=== PATIENT | female | born 1960 | race African-American/Black ===

== ENCOUNTER 2018-11-08 14:05 | Inpatient (IN) | payer OTHER ==
[~2018-11-08] VITALS: Ht 170.2 cm; Wt 85.5 kg
[2018-11-08 14:12] VITALS: BP 165/88
[2018-11-08 15:19] LABS: ICTOTEST (BILI CONFIRMATORY) Positive (Negative); URINE BILIRUBIN 3+ (Negative); URINE BLOOD NEGATIVE (Negative); URINE CLARITY CLEAR; URINE COLOR YELLOW; URINE GLUCOSE-RANDOM* TRACE (Negative); URINE KETONES TRACE (Negative); URINE LEUKOCYTES-REFLEX TRACE (Negative); URINE NITRITE-REFLEX NEGATIVE (Negative); URINE PROTEIN (DIPSTICK) TRACE (Negative); URINE UROBILINOGEN >= 8.0 E.U./dl (0.2-1.0)
[2018-11-08] MEDS ORDERED: METFORMIN HCL500 MG PO (15:44)
[2018-11-08] MEDS ORDERED: NORVASC2.5 MG PO (15:44)
[2018-11-08] MEDS ORDERED: ALLOPURINOL 10100 M1 PO (15:44)
[2018-11-08] MEDS ORDERED: TOPROL XL25 MG PO (15:44)
[2018-11-08 15:47] LABS: ABSOLUTE NEUTROPHILS 5.3 thou/uL (1.4-8.2); BASOPHILS 0.5 % (0.0-2.0); EOSINOPHILS 1.1 % (0.0-3.0); HEMATOCRIT 39.7 % (37.0-47.0); HEMOGLOBIN 13.2 gm/dL (12.0-15.0); MCH 30.7 pg (26.0-34.0); MCHC 33.3 g/dL (28.0-37.0); MCV 92.3 fL (80.0-100.0); MONOCYTES 7.8 % (1.0-8.0); PLATELET COUNT 301 thou/uL (150-400); POLYS 72.6 % (36.0-66.0); RDW 15.1 % (10.5-14.5); WBC 7.3 thou/uL (4.0-11.0)
[2018-11-08 15:56] LABS: CALCIUM 9.9 mg/dL (8.5-10.1); CREATININE 0.8 mg/dL (0.6-1.0); POTASSIUM 3.3 mmol/L (3.5-5.1)
[2018-11-08 16:04] LABS: ALBUMIN 3.6 g/dL (3.4-5.0); TOTAL BILIRUBIN 2.2 mg/dL (<0.1-1.0); TOTAL PROTEIN 7.5 g/dL (6.4-8.2)
[2018-11-08 18:41] VITALS: BP 154/81
[2018-11-08 19:09] VITALS: BP 163/92
[2018-11-08 19:55] VITALS: BP 153/74
[2018-11-09 05:18] VITALS: BP 157/61
[2018-11-09 05:41] LABS: HEMATOCRIT 36.2 % (37.0-47.0); MCH 30.8 pg (26.0-34.0); MCHC 33.1 g/dL (28.0-37.0); MCV 93.3 fL (80.0-100.0); RBC 3.88 mil/uL (4.20-5.00); RDW 15.1 % (10.5-14.5); WBC 7.5 thou/uL (4.0-11.0)
[2018-11-09 05:43] LABS: CALCIUM 9.1 mg/dL (8.5-10.1); CREATININE 0.7 mg/dL (0.6-1.0)
--- NOTE | 2018-11-09 05:47 | NUR ---
PATIENT ARRIVED ON UNIT VIA W/C, ACCOMPANIED BY SON AND ED PERSONEL AROUND 1914. PATIENT ALERT AND ORIENTED X4. UP AD CHAR. IV PATENT WITH FLUIDS RUNNING. C/O PAIN X1 MED GIVEN. NPO AT [place] FOR SURGERY TOMORROW. SLEPT OFF AND DURING NIGHT.
[2018-11-09 08:02] VITALS: BP 139/71
--- NOTE | 2018-11-09 08:46 | NUR ---
BROUGHT PT DOWN TO SICU, VIA W/C, A&0X4, WILL SET UP IVF AND ADM PAIN AND NAUSEA MEDS SOON AVAILABLE IN [facility]. PT'S NPO, WILL ALSO GIVE MOUTH SWABS, AMB STEADY, ENCOURAGED HER TO SIT AT BEDSIDE AND IF DIZZY AT ALL TO CALL FOR SBA WHILE WALKING YET BOTH TIMES SHE'S AMBULATED SHE'S GOT A STEADY CLIP AND IS STEADY. WILL CONTINUE TO MONITOR, RA, AND ACCU CHECKS.
[2018-11-09 08:58] VITALS: BP 149/80
[2018-11-09 20:30] VITALS: BP 150/75
[2018-11-10 06:07] LABS: HEMATOCRIT 35.6 % (37.0-47.0); HEMOGLOBIN 11.8 gm/dL (12.0-15.0); MCH 30.8 pg (26.0-34.0); MCHC 33.2 g/dL (28.0-37.0); MCV 92.8 fL (80.0-100.0); RBC 3.84 mil/uL (4.20-5.00); WBC 7.8 thou/uL (4.0-11.0)
[2018-11-10 06:31] LABS: ALBUMIN 3.4 g/dL (3.4-5.0); CALCIUM 9.2 mg/dL (8.5-10.1); CREATININE 0.7 mg/dL (0.6-1.0); POTASSIUM 4.5 mmol/L (3.5-5.1); TOTAL BILIRUBIN 1.2 mg/dL (<0.1-1.0); TOTAL PROTEIN 6.4 g/dL (6.4-8.2)
--- NOTE | 2018-11-10 06:46 | NUR ---
ASSUMED CARE AT 1900, ASSESSMENT COMPLETED. PT REPORTS MODERATE MID ABD PAIN THAT RADIATES TO BACK; EDUCATED ABOUT HOW OFTEN SHE COULD HAVE PAIN MEDS AND THAT SHE SHOULD CALL WHEN SHE NEEDED IT, BUT SHE DID NOT CALL FOR PAIN MEDS OVERNIGHT. REPORTED SLIGHT NAUSEA BUT OVERALL GREATLY IMPROVED. DENIED SOB. UP AD CHAR, STEADY ON FEET. GIVEN DOSE OF MAG CITRATE AT BEGINNING OF SHIFT; PT REPORTED A VERY LARGE BOWEL MOVEMENT THIS AM. PLAN FOR SURGICAL CONSULT THIS MORNING. NO OTHER CONCERNS, WILL CONTINUE TO MONITOR.
[2018-11-10 07:36] VITALS: BP 149/74
--- NOTE | 2018-11-10 09:36 | NUR ---
ASSUMED CARE OF PATIENT THIS MORNING. PATIENT IS A&OX4. SHE GETS UP AD CHAR. PATIENT IS CURRENTLY NPO FOR LAPAROSCOPIC CHOLECYSTECTOMY WITH CHOLANGIOGRAM. SHE HAS NOT COMPLAINED OF ANY N/V THIS MORNING. PATIENT HAS BEGAN TO COMPLAIN OF PAIN AND WILL BE GIVEN IV PUSH MORPHINE. HER BLOOD SUGAR WAS CHECKED THIS MORNING AND IT WAS 113. A NEW NICOTINE PATCH WAS PLACED ON PATIENT'S LEFT ARM. SHE IS CURRENTLY LYING IN BED WITH CALL LIGHT WITHIN REACH. SHE CALLS OUT APPRPOPRIATELY FOR NEEDED ASSISTANCE.
--- NOTE | 2018-11-10 11:50 | NUR ---
INITIAL ASSESSMENT: GRETA reviewed chart and opened case due to length of stay. Pt was admitted from home due to abdominal pain. Pt [facility]. Pt is schedule to have lap jose later today per surgery. GRETA met with pt at bedside. Introduced role of SW. Pt is alert/orientated x 4. Pt reports she lives at home with family. Prior to admission, pt was independent with ADLs. No use of DME. No hx of HH services or SNF/Rehab placement. Pt does not currently have health insurance. Pt states she has been to [facility] in the past and will try to get established with them again. Pt does not have a PCP. Pt agreeable with referral to [facility] for assistance with Medicaid application. Pt may need assistance with medications at time of discharge. Pt is diabetic. 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 GRETA contacted [facility] of need for assistance with diabetic meds/supplies. Plan is for pt to discharge home when medically stable. GRETA is following to sasist as needed with discharge planning.
--- NOTE | 2018-11-10 11:53 | NUR ---
PATIENT CURRENTLY PATIENT PAY STATUS. FACESHEET FAXED TO [facility] FOR REVIEW.
--- NOTE | 2018-11-10 14:17 | NUR ---
PATIENT OFF UNIT FOR PROCEDURE AT 1417. CONSENT FORM SIGNED. FAMILY ACCOMPANIED PATIENT TO PRE-OP AREA.
--- NOTE | 2018-11-10 17:32 | NUR ---
PT TRANSFERRED FROM POST OP. GALLBLADDER REMOVED LAPAROSCOPY. 4 INCISION SITES W/DERMABOND. CLINDAMYCIN GIVEN PREOP. 50 FENTANYL GIVEN AND ANOTHER 50 GIVEN BEFORE BEING TRANSFERRED TO UNIT. PATIENT BACK ON UNIT AND ON 2L OF O2.
[2018-11-10 17:52] VITALS: BP 152/85
--- NOTE | 2018-11-10 19:29 | NUR ---
I AGREE WITH NURSING ASSESSMENT DONE BY CASIE/STAS.
[2018-11-10 21:29] VITALS: BP 150/98
--- NOTE | 2018-11-11 05:07 | NUR ---
PATIENT ALERT AND ORIENTED X4. C/O PAIN X2, MED GIVEN WITH GOOD RELIEF BOTH TIMES. 4 SM INCISIONS ON ABD WITH DERMABOND HEALING WITH NO S/S OF INFECTION. ACCUCHECK WAS 165, 3UNITS LISPRO INSULIN GIVEN. UP WITH ASSIST TO BATHROOM. ALL 4 RAILS UP PER PATIENT REQUEST. SLEPT MOST OF NIGHT.
[2018-11-11 07:28] VITALS: BP 179/89
--- NOTE | 2018-11-11 10:25 | NUR ---
PATIENT IS A&OX4. UP W/SBA TO THE BATHROOM. SHE HAS RECEIVED PO HYDROCODONE THIS MORNING FOR ABD PAIN FROM GALLBLADDER REMOVAL SURGERY YESTERDAY. SHE TOLERATED HER MORNING MEDICATIONS. SHE REFUSED THE NICOTINE PATCH. PATIENT WILL BE DISCHARGING HOME TODAY. NO ABNORMAL ASSESSMENT FINDINGS. BLOOD SUGAR WAS CHECKED THIS MORNING, IT WAS 143, NO INSULIN WAS GIVEN. SHE IS CURRENTLY LYING IN BED WITH CALL LIGHT WITHIN REACH.
[2018-11-11] MEDS ORDERED: HYDROCODON-ACE1 EAC7 PO (13:49)
[2018-11-11 14:34] VITALS: BP 179/89
--- NOTE | 2018-11-11 15:02 | NUR ---
PATIENT DISCHARGED HOME WITH SELF CARE. FOLLOW UP WITH GI IN 2 WEEKS AND 4 WEEKS FOR PCP. PATIENT WAS SENT HOME WITH ONE PRESCRIPTION FOR HYDROCODONE. SHE LEFT THE FACILITY WITH HER CHILDREN. IV REMOVED BEFORE DISCHARGE.
--- NOTE | 2018-11-11 15:59 | NUR ---
DISCHARGE NOTE: SW reviewed chart and spoke with nursing and attending physician. Pt is medically stable for discharge home today. SW attempted to meet with pt to assist with medications. Pt had already been discharged. No additional SW needs identified. Case closed.
--- NOTE | 2018-11-15 18:05 | PATH ---
[facility] [address] [place] [address] PATHOLOGY RPT PROCEDURE Name: LILIANA SANTOYO Room #: 220-P [facility] [place] M.R.#: [id number] ������������������ Admission: 11/08/18 ������������������ Date of : 56 Discharge: 11/11/18 Report #: [id number] Path Case #: [id number] [facility] Accession Number: [id number] . 01 Material submitted: . gallbladder - GALLBLADDER . 02 Diagnosis: Gallbladder, cholecystectomy: - Mild chronic cholecystitis. - Cholelithiasis. (IUV:pit 11/15/2018) QTP/11/15/2018 . 02 Electronically signed: . Tory Lima MD, Pathologist NPI- [id number] . 01 Gross description: . The specimen is received in formalin, labeled "Liliana Santoyo, is a previously opened gallbladder measuring 10.0 x 4.2 with an average 0.2 cm thick wall. The serosa is fernández purple and dull. There are multiple multifaceted pale yellow-green calculi and its fragments aadjacent to the cystic duct and within the container measuring 4.0 x 3.5 x 0.7 cm in aggregate. The mucosa is fernández-brown and granular. No discrete masses are identified. Airport Clerk tissue is submitted in A1. (SWS; 11/10/2018) SHS/SHS . 02 Pathologist provided ICD-10: K80.10 . 02 CPT . 780946 Specimen Comment: A courtesy copy of this report has been sent to Specimen Comment: [phone], . Specimen Comment: Report sent to / DR BONILLA Performed at: [address], [place] [id number] MD Jaime Watts MD Phone: [phone] Performed at: [address] [id number] MD Tory Lima MD Phone: [phone]
== END 2018-11-11 15:15 | disposition home or self-care (01) | DRG 419 ==
LOC: ER 14:05 → EROBS 18:36 → 4E 18:36 → SICU 11-09 08:44 → ENTRNSPT 11-11 14:56 → SICU 11-11 15:15 → EDTRNSPTSTS 11-11 15:23
PROVIDERS: Nurse Practitioner; Nurse Practitioner Family; ADMIT Internal Medicine
PROC: 0FT44ZZ Resection of Gallbladder, Percutaneous Endoscopic Approach (ICD-10-PCS; principal; 2018-11-10)
PROC: BF121ZZ Fluoroscopy of Gallbladder using Low Osmolar Contrast (ICD-10-PCS; principal; 2018-11-10)
DX: K80.01 Calculus of gallbladder with acute cholecystitis with obstruction (principal); E11.9 Type 2 diabetes mellitus without complications; M10.9 Gout, unspecified; I10 Essential (primary) hypertension; F17.210 Nicotine dependence, cigarettes, uncomplicated; R74.0 Nonspecific elevation of levels of transaminase and lactic acid dehydrogenase [LDH]; K76.0 Fatty (change of) liver, not elsewhere classified; Z88.0 Allergy status to penicillin; Z79.899 Other long term (current) drug therapy
CPT/HCPCS: 10084; 15002; 50010; 50101; 50249; 50411; 50555; 50558; 50962; 51975; 52265; 53307; 53310; 54022; 54118; 55245; 55317; 56462; 56525; 56526; 62110; 62900; 70005

== ENCOUNTER 2018-11-26 17:03 | Inpatient (IN) | payer OTHER ==
[~2018-11-26] VITALS: Ht 170.2 cm; Wt 86.2 kg
[~2018-11-26 17:03] MED LIST: ALLOPURINOL 10100 M1 PO; HYDROCODON-ACE1 EAC7 PO; METFORMIN HCL500 MG PO; NORVASC2.5 MG PO; TOPROL XL25 MG PO
[2018-11-26 17:04] VITALS: BP 164/91
[2018-11-26 17:21] LABS: URINE BILIRUBIN NEGATIVE (Negative); URINE BLOOD TRACE (Negative); URINE CLARITY CLEAR; URINE COLOR YELLOW; URINE GLUCOSE-RANDOM* NEGATIVE (Negative); URINE KETONES NEGATIVE (Negative); URINE LEUKOCYTES-REFLEX 3+ (Negative); URINE NITRITE-REFLEX NEGATIVE (Negative); URINE PROTEIN (DIPSTICK) NEGATIVE (Negative); URINE UROBILINOGEN 0.2 E.U./dl (0.2-1.0)
[2018-11-26 17:29] LABS: SQUAMOUS >10 Many /LPF (0-3)
[2018-11-26 17:30] LABS: CASTS None Seen /LPF (None Seen); CRYSTALS None Seen /LPF (None Seen); URINE RBC 0-2 Rare /HPF (0-2); WBC CLUMPS Few (None Seen)
[2018-11-26 18:06] LABS: ABSOLUTE NEUTROPHILS 15.4 thou/uL (1.4-8.2); BASOPHILS 0.4 % (0.0-2.0); EOSINOPHILS 0.1 % (0.0-3.0); HEMATOCRIT 35.6 % (37.0-47.0); MCH 30.9 pg (26.0-34.0); MCHC 33.7 g/dL (28.0-37.0); MCV 91.9 fL (80.0-100.0); MONOCYTES 5.2 % (1.0-8.0); PLATELET COUNT 351 thou/uL (150-400); POLYS 89.3 % (36.0-66.0); RBC 3.87 mil/uL (4.20-5.00); WBC 17.3 thou/uL (4.0-11.0)
[2018-11-26 18:13] LABS: CALCIUM 9.7 mg/dL (8.5-10.1); CREATININE 0.9 mg/dL (0.6-1.0); POTASSIUM 3.7 mmol/L (3.5-5.1)
[2018-11-26 18:30] LABS: ALBUMIN 3.2 g/dL (3.4-5.0); TOTAL BILIRUBIN 0.3 mg/dL (<0.1-1.0); TOTAL PROTEIN 7.2 g/dL (6.4-8.2)
[2018-11-26 19:51] VITALS: BP 131/73
[2018-11-26 19:58] VITALS: BP 113/60
[2018-11-26 20:34] VITALS: BP 111/69
[2018-11-27 04:04] VITALS: BP 143/83
[2018-11-27 05:33] LABS: HEMATOCRIT 31.3 % (37.0-47.0); HEMOGLOBIN 10.4 gm/dL (12.0-15.0); MCH 30.3 pg (26.0-34.0); MCHC 33.1 g/dL (28.0-37.0); MCV 91.5 fL (80.0-100.0); RBC 3.42 mil/uL (4.20-5.00); RDW 14.9 % (10.5-14.5); WBC 16.8 thou/uL (4.0-11.0)
[2018-11-27 06:27] LABS: CALCIUM 8.6 mg/dL (8.5-10.1); CREATININE 0.7 mg/dL (0.6-1.0); POTASSIUM 3.3 mmol/L (3.5-5.1)
--- NOTE | 2018-11-27 06:38 | NUR ---
Received pt from the Ed at 1915. Pt vitals stable. AOX4. VSS. Has been getting tylenol for an increase in temp. On tele running sr. Stand by assist. Has been having pain on both legs. On carb control diet. No skin issues. No identified needs at the moment. IV on L AC with NS @125. Will continue to monitor.
[2018-11-27 08:00] VITALS: BP 136/68
[2018-11-27 15:00] VITALS: BP 152/84
--- NOTE | 2018-11-27 15:18 | NUR ---
Assessment completed.vss but temp slightly elevated.Pt in bed for meals.Fair appetite.Dr Vail here,order noted.Pt up to br voided without c/o.Urine cloudiness better today.Pt family here and updates given.Pt c/o generalized pain.Po pain med given as ordered.Will continue to monitor.
[2018-11-27 20:03] VITALS: BP 153/93
[2018-11-28 03:19] VITALS: BP 145/74
--- NOTE | 2018-11-28 04:30 | NUR ---
ASSUMED CARE 1900. PT ALERT AND ORIENTED. VITALS STABLE. NO SOA, CHEST PAIN OR ANY RESP DISTRESS. REPORTS HEADACHE AND FLANK PAIN. NORCO GIVEN X2. RECEIVED POTASSIUM AND ABX. NO FEVER NOTED. WILL CONTINUE TO FOLLOW PLAN OF CARE.
[2018-11-28 05:18] LABS: ABSOLUTE NEUTROPHILS 9.5 thou/uL (1.4-8.2); BASOPHILS 0.4 % (0.0-2.0); EOSINOPHILS 0.3 % (0.0-3.0); HEMATOCRIT 30.9 % (37.0-47.0); HEMOGLOBIN 10.2 gm/dL (12.0-15.0); LYMPHOCYTES 8.5 % (24.0-44.0); MCH 30.4 pg (26.0-34.0); MCHC 33.1 g/dL (28.0-37.0); MCV 91.9 fL (80.0-100.0); MONOCYTES 9.2 % (1.0-8.0); PLATELET COUNT 308 thou/uL (150-400); POLYS 81.6 % (36.0-66.0); RBC 3.36 mil/uL (4.20-5.00); RDW 14.8 % (10.5-14.5); WBC 11.6 thou/uL (4.0-11.0)
[2018-11-28 05:35] LABS: CALCIUM 8.7 mg/dL (8.5-10.1); CREATININE 0.5 mg/dL (0.6-1.0); POTASSIUM 3.3 mmol/L (3.5-5.1)
[2018-11-28 07:49] VITALS: BP 139/94
[2018-11-28 13:57] VITALS: BP 136/74
--- NOTE | 2018-11-28 16:13 | NUR ---
INFLUENZA SWAB A &B COLLECTED AND TAKEN TO LAB AT THIS TIME.
--- NOTE | 2018-11-28 16:14 | NUR ---
PT RESTING QUIETLY IN BED WATCHING TV FAMILY HERE TO VISIT. PT STATES NO PAIN OR RESP DISTRESS.
[2018-11-28 20:07] VITALS: BP 146/82
--- NOTE | 2018-11-29 02:35 | NUR ---
ASSUMED CARE AROUND 1900. AXOX4. REMAINED AFEBRILE. STREP SWAB COMPLETED. NO S/S ACUTE DISTRESS NOTED OR REPORTED AT THIS TIME. WILL CONT TO MONITOR FOR ANY CHANGES IN CONDITION.
[2018-11-29 05:50] LABS: ABSOLUTE NEUTROPHILS 5.5 thou/uL (1.4-8.2); BASOPHILS 0.5 % (0.0-2.0); EOSINOPHILS 1.3 % (0.0-3.0); HEMATOCRIT 29.9 % (37.0-47.0); HEMOGLOBIN 10.1 gm/dL (12.0-15.0); LYMPHOCYTES 16.4 % (24.0-44.0); MCH 31.1 pg (26.0-34.0); MCHC 33.7 g/dL (28.0-37.0); MCV 92.1 fL (80.0-100.0); MONOCYTES 11.4 % (1.0-8.0); PLATELET COUNT 326 thou/uL (150-400); POLYS 70.4 % (36.0-66.0); RBC 3.25 mil/uL (4.20-5.00); RDW 14.7 % (10.5-14.5); WBC 7.8 thou/uL (4.0-11.0)
[2018-11-29 06:06] LABS: CALCIUM 8.9 mg/dL (8.5-10.1); CREATININE 0.6 mg/dL (0.6-1.0); POTASSIUM 3.7 mmol/L (3.5-5.1)
[2018-11-29 08:00] VITALS: BP 136/85
--- NOTE | 2018-11-29 09:39 | NUR ---
Nutrition: Admitted with pyelonephritis, sepsis. Seen for dx. Pt was here in October for rissa garcia. States appetite has been down since admission with intake around 25%. Current wt 190 lbs, UBW 169-172 lbs. Wt has been stable x3 weeks. States has has dental work on bottom teeth, could contribute to decreased intake. Hx of DM, BG controlled. Pt states she is d/c today. Low nutrition risk.
[2018-11-29] MEDS ORDERED: CEFUROXIME500 MG PO (10:59)
[2018-11-29 11:12] VITALS: BP 136/85
--- NOTE | 2018-11-29 11:39 | NUR ---
ASSUMED CARE OF PT AT 0700. ASSESSMENT COMPLETED. A&O,X4. C/O LEFT FLANK PAIN, PAIN MEDS GIVEN ORDERED. ACHS, NO INSULIN REQUIRED PER SLIDING SCALE. NEW DISCHARGE ORDERS. D/C INFORMATION GIVEN TO PT AT BEDSIDE. IV REMOVED, NO ACTIVE BLEEDING. PT DRESSED IN CLOTHES, BELONGINGS TOGETHER. NEW SCRIPTS AND CARENOTES GIVEN. DAUGHTER TO PICK PT UP AT [facility]ICAL [facility]ALL ENTRANCE. PT LEFT IN STABLE CONDITION VIA WHEELCHAIR AT 11:30. STATES NO QUESTIONS OR CONCERNS.
== END 2018-11-29 12:19 | disposition home or self-care (01) | DRG 872 ==
LOC: ER 17:03 → EROBS 19:26 → 4W 19:26 → ENTRNSPT 11-29 11:23 → EDTRNSPTSTS 11-29 11:32 → 4W 11-29 12:19
PROVIDERS: Nurse Practitioner Acute Care; Physician Assistant; ADMIT Family Medicine
DX: A41.9 Sepsis, unspecified organism (principal); N12 Tubulo-interstitial nephritis, not specified as acute or chronic; I10 Essential (primary) hypertension; E87.6 Hypokalemia; F17.210 Nicotine dependence, cigarettes, uncomplicated; E11.9 Type 2 diabetes mellitus without complications; M10.9 Gout, unspecified; Z79.84 Long term (current) use of oral hypoglycemic drugs; Z90.49 Acquired absence of other specified parts of digestive tract; Z88.0 Allergy status to penicillin; Z90.710 Acquired absence of both cervix and uterus
CPT/HCPCS: 10045

== ENCOUNTER 2019-03-22 12:31 | Emergency (ER) | payer OTHER ==
[~2019-03-22] VITALS: Ht 170.2 cm; Wt 86.2 kg
[~2019-03-22 12:31] MED LIST changes: +CEFUROXIME500 MG PO
[2019-03-22 12:58] LABS: URINE BILIRUBIN NEGATIVE (Negative); URINE BLOOD NEGATIVE (Negative); URINE CLARITY CLEAR; URINE COLOR YELLOW; URINE GLUCOSE-RANDOM* NEGATIVE (Negative); URINE KETONES NEGATIVE (Negative); URINE LEUKOCYTES-REFLEX NEGATIVE (Negative); URINE NITRITE-REFLEX NEGATIVE (Negative); URINE PROTEIN (DIPSTICK) NEGATIVE (Negative); URINE SPECIFIC GRAVITY >= 1.030 (1.005-1.035); URINE UROBILINOGEN 0.2 E.U./dl (0.2-1.0)
[2019-03-22 13:10] LABS: ABSOLUTE NEUTROPHILS 5.4 thou/uL (1.4-8.2); BASOPHILS 0.8 % (0.0-2.0); EOSINOPHILS 1.1 % (0.0-3.0); HEMATOCRIT 38.5 % (37.0-47.0); HEMOGLOBIN 13.1 gm/dL (12.0-15.0); LYMPHOCYTES 24.3 % (24.0-44.0); MCH 30.6 pg (26.0-34.0); MONOCYTES 6.6 % (1.0-8.0); PLATELET COUNT 295 thou/uL (150-400); POLYS 67.2 % (36.0-66.0); RBC 4.28 mil/uL (4.20-5.00); RDW 15.2 % (10.5-14.5)
[2019-03-22 13:19] LABS: CALCIUM 9.5 mg/dL (8.5-10.1); CREATININE 0.7 mg/dL (0.6-1.0); POTASSIUM 3.5 mmol/L (3.5-5.1)
[2019-03-22] MEDS ORDERED: NORCO 5-325 TA1 EAC1 PO (15:17)
[2019-03-22 15:25] VITALS: BP 129/71
== END 2019-03-22 15:28 | disposition home or self-care (01) ==
LOC: ER 12:31
PROVIDERS: Emergency Medicine; Physician Assistant
DX: M54.5 Low back pain (principal); R35.0 Frequency of micturition; R10.9 Unspecified abdominal pain; E11.9 Type 2 diabetes mellitus without complications; I10 Essential (primary) hypertension; M10.9 Gout, unspecified; F17.210 Nicotine dependence, cigarettes, uncomplicated; Z90.710 Acquired absence of both cervix and uterus; Z90.49 Acquired absence of other specified parts of digestive tract; Z88.0 Allergy status to penicillin

== ENCOUNTER 2021-01-05 17:21 | Emergency (ER) | payer OTHER ==
[~2021-01-05] VITALS: Ht 167.6 cm; Wt 83.9 kg
[~2021-01-05 17:21] MED LIST changes: +NORCO 5-325 TA1 EAC1 PO
[2021-01-05 17:31] VITALS: BP 140/79
[2021-01-05 18:25] LABS: ABSOLUTE NEUTROPHILS 6.7 thou/uL (1.4-8.2); BASOPHILS 0.6 % (0.0-2.0); EOSINOPHILS 1.6 % (0.0-3.0); HEMATOCRIT 38.8 % (37.0-47.0); HEMOGLOBIN 12.9 gm/dL (12.0-15.0); LYMPHOCYTES 18.8 % (24.0-44.0); MCH 30.7 pg (26.0-34.0); MCHC 33.3 g/dL (28.0-37.0); MCV 92.3 fL (80.0-100.0); MONOCYTES 7.1 % (1.0-8.0); PLATELET COUNT 295 thou/uL (150-400); POLYS 71.9 % (36.0-66.0); RBC 4.21 mil/uL (4.20-5.00); RDW 14.8 % (10.5-14.5); WBC 9.3 thou/uL (4.0-11.0)
[2021-01-05 18:37] LABS: ANION GAP 10 mmol/L (7-16); BUN 14 mg/dL (7-18); CALCIUM 8.9 mg/dL (8.5-10.1); CHLORIDE 107 mmol/L (98-107); CO2 25 mmol/L (21-32); CREATININE 0.8 mg/dL (0.6-1.0); GLUCOSE 115 mg/dL (74-106); POTASSIUM 4.1 mmol/L (3.5-5.1); SODIUM 142 mmol/L (136-145)
[2021-01-05 18:47] LABS: ALBUMIN 3.4 g/dL (3.4-5.0); SGOT 14 U/L (15-37); SGPT 34 U/L (14-59); TOTAL BILIRUBIN 0.2 mg/dL (0.2-1.0); TROPONIN-I <0.06 ng/mL (<0.06)
[2021-01-05] MEDS ORDERED: CYCLOBENZAPRINE5 MG PO (19:10)
[2021-01-05] MEDS ORDERED: NORCO5 PO (19:10)
--- NOTE | 2021-01-07 07:21 | EKG ---
[address] [place] [address] ELECTROCARDIOGRAM REPORT Name: MACK CATALAN Room #: [facility] Ever#: [id number] Admission: 01/05/21 Attend Phys: Discharge: 01/05/21 Date of : 56 Report #: [id number] [facility] ED Test Date: 2021-01-05 Test Time: 18:13:31 Pat Name: MACK CATALAN Department: Room: Gender: F Director Product Safety: anne : 1960 Requested By: Fe Valero Order Number: [id number] MD: Fahad Mello Measurements Intervals [place] Rate: 66 P: 36 NV: 150 QRS: 52 QRSD: 95 T: 15 QT: 392 QTc: 411 Interpretive Statements Sinus rhythm Borderline T wave abnormalities No previous ECG available for comparison Electronically Signed On 01-07-2021 7:21:30 CDT by Fahad Mello [email or web address] <ELECTRONICALLY SIGNED> By: Fahad Mello MD, [facility] 01/07/21720 181 1813 Fahad Mello MD, FACC /EPI
== END 2021-01-05 20:11 | disposition home or self-care (01) ==
LOC: ER 17:21
PROVIDERS: Physician Assistant
DX: M54.6 Pain in thoracic spine (principal); M25.512 Pain in left shoulder; F17.210 Nicotine dependence, cigarettes, uncomplicated; Z79.84 Long term (current) use of oral hypoglycemic drugs; Z88.0 Allergy status to penicillin; E11.9 Type 2 diabetes mellitus without complications

== ENCOUNTER 2021-03-01 20:59 | Emergency (ER) | payer OTHER ==
[~2021-03-01] VITALS: Ht 170.2 cm; Wt 72.6 kg
[~2021-03-01 20:59] MED LIST changes: +CYCLOBENZAPRINE5 MG PO; +NORCO5 PO
[2021-03-01] MEDS ORDERED: MELOXICAM7.5 MG PO (21:13)
[2021-03-01 21:47] LABS: ABSOLUTE NEUTROPHILS 11.2 thou/uL (1.4-8.2); BASOPHILS 0.5 % (0.0-2.0); EOSINOPHILS 0.6 % (0.0-3.0); HEMATOCRIT 33.2 % (37.0-47.0); HEMOGLOBIN 11.2 gm/dL (12.0-15.0); LYMPHOCYTES 9.7 % (24.0-44.0); MCH 30.6 pg (26.0-34.0); MCHC 33.8 g/dL (28.0-37.0); MCV 90.5 fL (80.0-100.0); MONOCYTES 9.1 % (1.0-8.0); PLATELET COUNT 380 thou/uL (150-400); POLYS 80.1 % (36.0-66.0); RBC 3.67 mil/uL (4.20-5.00); RDW 14.8 % (10.5-14.5)
[2021-03-01 21:53] LABS: CALCIUM 8.1 mg/dL (8.5-10.1); CREATININE 0.7 mg/dL (0.6-1.0); POTASSIUM 3.8 mmol/L (3.5-5.1)
[2021-03-01 21:59] LABS: ALBUMIN 2.5 g/dL (3.4-5.0); TOTAL BILIRUBIN 0.2 mg/dL (0.2-1.0)
[2021-03-01] MEDS ORDERED: BENAZEPRIL HCL40 MG PO (22:03)
[2021-03-01] MEDS ORDERED: LIPITOR80 MG PO (22:03)
[2021-03-02 00:01] LABS: URINE BILIRUBIN NEGATIVE (Negative); URINE BLOOD NEGATIVE (Negative); URINE CLARITY CLEAR; URINE COLOR YELLOW; URINE GLUCOSE-RANDOM* NEGATIVE (Negative); URINE KETONES NEGATIVE (Negative); URINE LEUKOCYTES-REFLEX TRACE (Negative); URINE PROTEIN (DIPSTICK) NEGATIVE (Negative); URINE SPECIFIC GRAVITY <= 1.005 (1.005-1.035); URINE UROBILINOGEN 0.2 E.U./dl (0.2-1.0)
[2021-03-02 00:06] LABS: URINE NITRITE-REFLEX POSITIVE (Negative)
[2021-03-02 00:08] LABS: SQUAMOUS 0-3 Few /LPF (0-3)
[2021-03-02 00:09] LABS: CASTS None Seen /LPF (None Seen); CRYSTALS None Seen /LPF (None Seen); MUCUS 0-3 Light strn/LPF (None Seen); URINE RBC 1-2 Rare /HPF (NONE SEEN); URINE WBC-REFLEX 6-15 Few /HPF (0-5)
[2021-03-02] MEDS ORDERED: CEPHALEXIN500 MG PO (03:13)
[2021-03-02 03:22] VITALS: BP 140/85
--- NOTE | 2021-03-02 12:22 | EKG ---
[place] [address] [facility] [place] [address] ELECTROCARDIOGRAM REPORT Name: MACK CATALAN Room #: DEP TIN Curtis#: [id number] Admission: 03/01/21 Attend Phys: Discharge: 03/02/21 Date of : 56 Report #: [id number] [facility] ED Test Date: 2021-03-01 Test Time: 21:56:13 Pat Name: MACK CATALAN Department: Room: Gender: F C++ Professor: laron : 1960 Requested By: Jensen Croft Order Number: [id number] MD: Lavelle Spicer Measurements Intervals [place] Rate: 80 P: 42 [place]: 124 QRS: 43 QRSD: 81 T: -39 QT: 472 QTc: 545 Interpretive Statements Sinus rhythm Borderline T abnormalities, diffuse leads Prolonged QT interval Compared to ECG 01/05/2021 18:13:31 Prolonged QT interval now present T-wave abnormality still present Electronically Signed On 03-02-2021 12:22:05 CDT by Lavelle Spicer [email or web address] <ELECTRONICALLY SIGNED> By: Lavelle Spicer MD 03/02/21 1222 [id number] Lavelle Spicer MD /ZAHIRA
== END 2021-03-02 03:23 | disposition home or self-care (01) ==
LOC: ER 20:59
PROVIDERS: Emergency Medicine
DX: N39.0 Urinary tract infection, site not specified (principal); R07.89 Other chest pain; E11.9 Type 2 diabetes mellitus without complications; I10 Essential (primary) hypertension; Z90.710 Acquired absence of both cervix and uterus; Z90.49 Acquired absence of other specified parts of digestive tract; Z79.899 Other long term (current) drug therapy; Z88.0 Allergy status to penicillin; Z87.891 Personal history of nicotine dependence

== ENCOUNTER 2021-06-30 14:55 | Emergency (ER) | payer OTHER ==
[~2021-06-30] VITALS: Ht 170.2 cm; Wt 79.4 kg
[~2021-06-30 14:55] MED LIST changes: +BENAZEPRIL HCL40 MG PO; +CEPHALEXIN500 MG PO; +LIPITOR80 MG PO; +MELOXICAM7.5 MG PO
[2021-06-30] MEDS ORDERED: ATORVASTATIN CA80 MG PO (15:52)
[2021-06-30] MEDS ORDERED: AMLODIPINE BESY10 MG PO (15:52)
[2021-06-30] MEDS ORDERED: LOPRESSOR50 PO (15:52)
[2021-06-30] MEDS ORDERED: QUETIAPINE FUMA50 MG PO (15:52)
[2021-06-30] MEDS ORDERED: TESSALON PERLE100 MG PO (17:16)
[2021-06-30] MEDS ORDERED: MEDROLDOSEPACK PO (17:16)
[2021-06-30 18:27] VITALS: BP 158/91
== END 2021-06-30 18:27 | disposition home or self-care (01) ==
LOC: ER 14:55
DX: R05.9 Cough, unspecified (principal); E11.9 Type 2 diabetes mellitus without complications; M10.9 Gout, unspecified; I10 Essential (primary) hypertension; Z87.891 Personal history of nicotine dependence; Z88.0 Allergy status to penicillin; Z79.899 Other long term (current) drug therapy; Z90.710 Acquired absence of both cervix and uterus